=== PATIENT | male | born 1955 | race Caucasian/White ===

== ENCOUNTER 2024-08-01 14:34 | Inpatient (IN) | payer OTHER ==
[2024-08-01] MEDS ORDERED: IPRATROPIUM BROM 0.5MG/2.5ML ONE (15:09)
[2024-08-01] MEDS ORDERED: ALBUTEROL 2.5 MG/3 ML NEB SOL ONE ×2 (15:09→16:21)
[2024-08-01] MEDS ORDERED: Magnesium Sulfate 2gm IVPB 2 G/50 ML BAG IV ONE (15:10)
[2024-08-01] MEDS ORDERED: METHYLPREDNISOLONE 125 MG INJ ONE (15:10)
[2024-08-01 15:15] LABS: Absolute Basophils 0.1 K/uL (0-0.5); Absolute Eosinophils 0.2 K/uL (0-0.5); Absolute Lymphocytes (CBC) 1.7 K/uL (0.7-4.9); Absolute Monocytes 0.9 K/uL (0.1-1.3); Eosinophils % 2.4 % (0-4.4); Hematocrit 42.3 % (39.6-49.0); Hemoglobin 14.7 g/dL (13.6-17.9); Lymphocytes % 21.2 % (15.3-44.8); MCH 31.3 pg (27.0-35.0); MCHC 34.7 g/dL (32.0-36.0); MPV 8.7 fL (7.6-11.3); Monocytes % 11.3 % (3.3-12.3); Neutrophils % 64.1 % (41.7-73.7); Platelets 190 thou/uL (152-406); Red Cell Distribution Width 14.1 % (12.1-15.2)
[2024-08-01 15:34] LABS: ALT/SGPT 35 U/L (16-61); AST/SGOT 15 U/L (15-37); Albumin 3.9 g/dL (3.4-5.0); Alkaline Phosphatase 88 U/L (45-117); Anion Gap 7.2 mEq/L (5.0-15.0); BUN Blood Urea Nitrogen 24 mg/dL (7-18); Bicarbonate 27 mEq/L (21-32); Bilirubin Total 0.5 mg/dL (0.2-1.0); Globulin 4.1 g/dL (2.3-3.5); Glomerular Filtration Rate 59 ml/min (=/>90); Glucose Level 85 mg/dL (74-106); Potassium 4.2 mEq/L (3.5-5.1); Sodium Level 138 mEq/L (136-145); Troponin High Sensitivity 5.2 pg/mL (<58.9)
[2024-08-01 15:35] LABS: Bilirubin Direct < 0.2 mg/dL (0-0.2); Bilirubin Indirect, Calculated 0.3 mg/dL (0.2-0.8)
[2024-08-01 15:36] LABS: Influenza A Ag Negative; Influenza B Ag Negative; SARS-CoV-2 Antigen Rapid Res Negative (Negative)
--- NOTE | 2024-08-01 15:56 | RAD REPORT ---
Procedure: Chest Single View HISTORY: Shortness of breath COMPARISON: none FINDINGS: Right lung base is hazy Lungs are hyperaerated. No significant pleural effusion noted. The heart is mildly enlarged. Post surgical changes involve the chest IMPRESSION: Right lung base is hazy probably pneumonia COPD
--- NOTE | 2024-08-01 16:43 | EDPHYS ---
Physician Documentation [facility] Name: Adolfo Lala Age: 69 yrs Sex: Male : 1955 Arrival Date: 08/01/2024 Time: 14:34 Bed 18 Private MD: ED Physician Coral Mars HPI: 08/01 14:57 This 69 yrs old Male presents to ER via EMS with complaints of Shortness Of sw6 Breath. 14:57 The patient has shortness of breath at rest. Onset: The symptoms/episode began/occurred sw6 Several days ago. Duration: The symptoms are continuous, and are steadily getting worse. The patient has experienced similar episodes in the past. The patient presents for evaluation for worsening shortness of breath of the possible days. He also complains of a cough but no fevers. He reports he was recently incarcerated. He does have a history of COPD and is a current smoker. He does not wear oxygen at baseline. He does have an albuterol inhaler and reports he last used it around noon today. It did help him slightly when he took it. No chest pain or pressure. No ear pain. No sore throat. He reports he feels worse with minimal exertion. Here for evaluation.. Historical: - Allergies: 14:59 No Known Allergies; sw6 - Immunization history:: Adult Immunizations unknown. - Social history:: Smoking status: Patient reports the use of cigarette tobacco products, unknown amount. - Infectious Disease History:: Denies. ROS: 14:59 Constitutional: Negative for fever, chills, and weight loss, Cardiovascular: Negative sw6 for chest pain, palpitations, and edema, Abdomen/GI: Negative for abdominal pain, nausea, vomiting, diarrhea, and constipation, 14:59 Respiratory: Positive for cough, with no reported sputum, shortness of breath, at rest. 14:59 All other systems are negative, Exam: 14:59 Constitutional: This is a well developed, well nourished patient who is awake, alert, sw6 and in no acute distress. Head/Face: Normocephalic, atraumatic. Cardiovascular: Regular rate and rhythm with a normal S1 and S2. No gallops, murmurs, or rubs. Normal PMI, no JVD. No pulse deficits. Abdomen/GI: Soft, non-tender, with normal bowel sounds. No distension or tympany. No guarding or rebound. No evidence of tenderness throughout. Skin: Warm, dry with normal turgor. Normal color with no rashes, no lesions, and no evidence of cellulitis. MS/ Extremity: Pulses equal, no cyanosis. Neurovascular intact. Full, normal range of motion. Neuro: Awake and alert, GCS 15, oriented to person, place, time, and situation. Cranial nerves II-XII grossly intact. Motor strength 5/5 in all extremities. Sensory grossly intact. Cerebellar exam normal. Normal gait. 14:59 Respiratory: Poor air movement throughout bilateral lung mckeon with occasional wheezing. No use of accessory muscles and he is able to speak in full and complete sentences without difficulty., 15:26 ECG was reviewed by the Attending Physician. Vital Signs: 14:51 BP 166 / 106; Pulse 69; Resp 16; Temp 97.8; Pulse Ox 86% ; Weight 61.69 kg; Height 5 db ft. 5 in. ; 15:30 BP 163 / 83; Pulse 58; Resp 17; Pulse Ox 91% on 5 lpm NC; db 16:00 BP 173 / 83; Pulse 59; Resp 18; Pulse Ox 93% on 5 lpm NC; db 17:00 BP 173 / 90; Pulse 63; Resp 14; Pulse Ox 91% on 5 lpm NC; db 17:30 BP 134 / 69; Pulse 72; Resp 20; Pulse Ox 94% on 5 lpm NC; db 18:00 BP 166 / 84; Pulse 64; Resp 18; Pulse Ox 90% ; db 18:30 BP 175 / 83; Pulse 76; Resp 16; Pulse Ox 91% on 5 lpm NC; db 19:30 BP 138 / 66; Pulse 71; Resp 20; Pulse Ox 93% on 4 lpm NC; ay 14:51 Body Mass Index 22.63 (61.69 kg, 165.1 cm) db MDM: 14:50 Medical Screening Exam initiated 14:59 Differential diagnosis: Bronchitis Chronic Obstructive Pulmonary Disease pneumonia, sw6 reactive airway disease. Data reviewed: vital signs, nurses notes. 16:32 Antibiotic administration: Rocephin and Zithromax given. Management of patient was discussed with the following: Hospitalist: . ED course: The patient has improved aeration to bilateral lungs after the treatments given above. His laboratory studies are unremarkable. His chest x-ray is concerning for right lower lobe pneumonia. He was given antibiotics here in the ER. As he does continue to have an oxygen requirement he does require admission for continued management.. 16:43 ED course: spoke with Dr. Hansen with the internal medicine service and the patient was swAlexey accepted for admission for continued management. . 08/01 14:57 Order name: BMP; Complete Time: 15:51 [facility] 08/01 15:51 Interpretation: Within normal limits. [facility] 08/01 14:57 Order name: CBC with Diff; Complete Time: 15:51 [facility] 08/01 15:51 Interpretation: Within normal limits. [facility] 08/01 14:57 Order name: Hepatic Function; Complete Time: 15:51 [facility] 08/01 15:51 Interpretation: Within normal limits. [facility] 08/01 14:57 Order name: Troponin HS; Complete Time: 15:51 [facility] 08/01 15:51 Interpretation: Within normal limits. [facility] 08/01 14:57 Order name: COVID-19 Ag + Flu A+B Ag; Complete Time: 15:51 [facility] 08/01 15:51 Interpretation: Within normal limits. [facility] 08/01 17:48 Order name: Urinalysis w/ reflexes EDMS 08/01 17:48 Order name: Basic Metabolic Panel EDMS 08/01 17:48 Order name: Basic Metabolic Panel EDMS 08/01 17:48 Order name: Basic Metabolic Panel EDMS 08/01 17:48 Order name: Basic Metabolic Panel EDMS 08/01 17:48 Order name: CBC with Automated Diff EDMS 08/01 17:48 Order name: CBC with Automated Diff EDMS 08/01 17:48 Order name: CBC with Automated Diff EDMS 08/01 17:48 Order name: CBC with Automated Diff EDMS 08/01 17:48 Order name: Magnesium EDMS 08/01 17:48 Order name: Magnesium EDMS 08/01 17:48 Order name: Magnesium EDMS 08/01 17:48 Order name: Magnesium EDMS 08/01 17:48 Order name: Phosphorus EDMS 08/01 17:48 Order name: Phosphorus EDMS 08/01 17:48 Order name: Phosphorus EDMS 08/01 17:48 Order name: Phosphorus EDMS 08/01 17:48 Order name: Troponin High Sensitivity EDMS 08/01 17:48 Order name: Troponin High Sensitivity EDMS 08/01 17:48 Order name: Troponin High Sensitivity [facility] 08/01 14:57 Order name: XRAY CXR (1 view); Complete Time: 16:28 08/01 16:28 Interpretation: Pneumonia. 08/01 14:57 Order name: EKG; Complete Time: 14:57 08/01 17:48 Order name: CONS Physician Consult [facility] 08/01 14:57 Order name: Cardiac monitoring; Complete Time: 15:40 08/01 14:57 Order name: EKG - Nurse/Tech; Complete Time: 15:40 08/01 14:57 Order name: IV Saline Lock; Complete Time: 15:40 08/01 14:57 Order name: Labs collected and sent; Complete Time: 15:40 08/01 14:57 Order name: O2 Per Protocol; Complete Time: 15:40 08/01 14:57 Order name: O2 Sat Monitoring; Complete Time: 15:40 sw EC: Rate is 55 beats/min. Rhythm is regular. QRS [place] is Normal. DE interval is normal. QRS sw6 interval is normal. QT interval is normal. No Q waves. T waves are Normal. No ST changes noted. Administered Medications: 15:10 Drug: Albuterol Inhalation 7.5 mg Inhalation once Route: Inhalation; db 16:15 Follow up: Response: No adverse reaction db 15:10 Drug: Ipratropium Inhalation Aerosol 0.5 mg Inhalation once Route: Inhalation; db 16:15 Follow up: Response: No adverse reaction db 15:12 Drug: MethylPrednisoLONE IVP 125 mg IVP once Route: IVP; Site: right antecubital; db 16:15 Follow up: Response: No adverse reaction db 15:15 Drug: Magnesium Sulfate IVPB 2 grams IVPB once over 30 mins Route: IVPB; Infused Over: db 30 mins; Site: right antecubital; 16:15 Follow up: Response: No adverse reaction; IV Status: Completed infusion; IV Intake: 50mldb 16:25 Drug: Albuterol Inhalation 5 mg Inhalation once Route: Inhalation; db 17:09 Drug: Rocephin - Rocephin (cefTRIAXone) IVPB 1 grams IVPB once over 30 mins; (mix in 50 db mL NS) Route: IVPB; Infused Over: 30 mins; Site: right antecubital; 17:56 Follow up: Response: No adverse reaction; IV Status: Completed infusion; IV Intake: 50mldb 17:09 Drug: AZITHromycin PO 500 mg PO once Route: PO; db 17:56 Follow up: Response: No adverse reaction db Disposition Summary: 08/01/24 16:43 Hospitalization Ordered Notes: Hospitalization Status: Inpatient Admission sw6 Provider: Bernardino Hansen6 Location: Telemetry/MedSur (Inpatient) sw6 Condition: Fair sw6 Symptoms: are unchanged sw6 Bed/Room Type: Standard sw6 Problem: an acute exacerbation(08/01/24 16:43) sw6 Room Assignment: 208(08/01/24 19:34) iw Diagnosis - Other pneumonia, unspecified organism sw6 - hypoxia sw6 - COPD/ Chronic obstructive pulmonary disease with (acute) exacerbation sw6 Forms: - Medication Reconciliation Form sw6 - SBAR form sw6 - Leadership Thank You Letter 6 Signatures: Dispatcher [employer] Mable Reyes RN RN iw Kim Gil RN RN db Coral Mars MD MD sw6 Corrections: (The following items were deleted from the chart) 16:43 16:43 chronic sw6 sw6 19:34 16:43 sw6 iw
--- NOTE | 2024-08-01 16:43 | ER ---
Nurse's Notes [facility] Name: Adolfo Lala Age: 69 yrs Sex: Male : 1955 Arrival Date: 08/01/2024 Time: 14:34 Bed 18 Private MD: Diagnosis: Other pneumonia, unspecified organism;hypoxia;COPD/ Chronic obstructive pulmonary disease with (acute) exacerbation Presentation: 08/01 14:43 Chief complaint: EMS states: Pt from [facility], called EMS for difficulty breathing, ph hx of COPD, 81% RA, improved to 88% on neb mask, duo-neb x 1 given. Coronavirus screen: Vaccine status: Patient reports being unvaccinated. Ebola Screen: No symptoms or risks identified at this time. Initial Sepsis Screen: Does the patient meet any 2 criteria? No. Patient's initial sepsis screen is negative. Does the patient have a suspected source of infection? No. Patient's initial sepsis screen is negative. Risk Assessment: Do you want to hurt yourself or someone else? Patient reports no desire to harm self or others. Onset of symptoms was August 01, 2024. 14:43 Method Of Arrival: EMS: [facility] ph 14:43 Acuity: ALVAREZ 2 ph Historical: - Allergies: 14:59 No Known Allergies; sw6 - Immunization history:: Adult Immunizations unknown. - Social history:: Smoking status: Patient reports the use of cigarette tobacco products, unknown amount. - Infectious Disease History:: Denies. Screenin:[facility] ED Fall Risk Assessment (Adult) History of falling in the last 3 months, db including since admission No falls in past 3 months (0 pts) Confusion or Disorientation No (0 pts) Intoxicated or Sedated No (0 pts) Impaired Gait No (0 pts) Mobility Assist Device Used No (0 pt) Altered Elimination No (0 pt) Score/Fall Risk Level 0 - 2 = Low Risk Oriented to surroundings, Maintained a safe environment. Abuse screen: Denies threats or abuse. Denies injuries from another. Nutritional screening: No deficits noted. Tuberculosis screening: No symptoms or risk factors identified. Assessment: 15:40 Reassessment: Patient appears in no apparent distress at this time. Patient and/or db family updated on plan of care and expected duration. Pain level reassessed. Patient is alert, oriented x 3, equal unlabored respirations, skin warm/dry/pink. General: Appears in no apparent distress. comfortable, Behavior is calm, cooperative. Pain: Denies pain. Neuro: Level of Consciousness is awake, alert, obeys commands, Oriented to person, place, time, situation. Cardiovascular: Rhythm is sinus rhythm. Respiratory: Airway is patent Respiratory effort is even, unlabored, Respiratory pattern is regular, symmetrical. 15:40 Respiratory: Breath sounds with wheezes bilaterally. db 16:45 Reassessment: Patient appears in no apparent distress at this time. Patient and/or db family updated on plan of care and expected duration. Pain level reassessed. Patient is alert, oriented x 3, equal unlabored respirations, skin warm/dry/pink. Respiratory:. 17:23 Reassessment: Patient appears in no apparent distress at this time. Patient and/or db family updated on plan of care and expected duration. Pain level reassessed. Patient is alert, oriented x 3, equal unlabored respirations, skin warm/dry/pink. Patient states feeling better. 18:00 Reassessment: Patient appears in no apparent distress at this time. Patient and/or db family updated on plan of care and expected duration. Pain level reassessed. Patient is alert, oriented x 3, equal unlabored respirations, skin warm/dry/pink. 18:43 Reassessment: Patient appears in no apparent distress at this time. Patient and/or db family updated on plan of care and expected duration. Pain level reassessed. Patient is alert, oriented x 3, equal unlabored respirations, skin warm/dry/pink. PATIENT PROVIDED A SANDWICH. 19:00 General: pt alert and oriented, no distress noted. still experiencing SOB, on 4L NC. ay Denies pain. Vital Signs: 14:51 BP 166 / 106; Pulse 69; Resp 16; Temp 97.8; Pulse Ox 86% ; Weight 61.69 kg; Height 5 db ft. 5 in. ; 15:30 BP 163 / 83; Pulse 58; Resp 17; Pulse Ox 91% on 5 lpm NC; db 16:00 BP 173 / 83; Pulse 59; Resp 18; Pulse Ox 93% on 5 lpm NC; db 17:00 BP 173 / 90; Pulse 63; Resp 14; Pulse Ox 91% on 5 lpm NC; db 17:30 BP 134 / 69; Pulse 72; Resp 20; Pulse Ox 94% on 5 lpm NC; db 18:00 BP 166 / 84; Pulse 64; Resp 18; Pulse Ox 90% ; db 18:30 BP 175 / 83; Pulse 76; Resp 16; Pulse Ox 91% on 5 lpm NC; db 19:30 BP 138 / 66; Pulse 71; Resp 20; Pulse Ox 93% on 4 lpm NC; ay 14:51 Body Mass Index 22.63 (61.69 kg, 165.1 cm) db ED Course: 14:37 Patient arrived in ED. mr 14:45 Triage completed. ph 14:45 Arm band placed on Patient placed in an exam room. ph 14:48 Coral Mars MD is Attending Physician. sw6 14:51 Kim Gil, RN is Primary Nurse. db 15:05 Initial lab(s) drawn, by me, sent to lab. EKG done. Initial Neb Treatment Given as db ordered. Inserted saline lock: 20 gauge in right antecubital area, using aseptic technique. Blood collected. Flushed with 10 mL NS. 15:43 XRAY CXR (1 view) In Process Unspecified. EDMS 16:43 Bernardino Hansen is Hospitalizing Provider. sw6 17:14 Patient has correct armband on for positive identification. Bed in low position. Call db light in reach. Side rails up X 1. Client placed on continuous cardiac and pulse oximetry monitoring. NIBP monitoring applied. youth nutritional monitor on. Pulse ox on. NIBP on. Pillow given. 18:47 Response to oxygen therapy: symptoms improved. db 20:21 Kirstie Coto, RN is Primary Nurse. ay 20:24 Patient admitted, IV remains in place. ay Administered Medications: 15:10 Drug: Albuterol Inhalation 7.5 mg Inhalation once Route: Inhalation; db 16:15 Follow up: Response: No adverse reaction db 15:10 Drug: Ipratropium Inhalation Aerosol 0.5 mg Inhalation once Route: Inhalation; db 16:15 Follow up: Response: No adverse reaction db 15:12 Drug: MethylPrednisoLONE IVP 125 mg IVP once Route: IVP; Site: right antecubital; db 16:15 Follow up: Response: No adverse reaction db 15:15 Drug: Magnesium Sulfate IVPB 2 grams IVPB once over 30 mins Route: IVPB; Infused Over: db 30 mins; Site: right antecubital; 16:15 Follow up: Response: No adverse reaction; IV Status: Completed infusion; IV Intake: 50mldb 16:25 Drug: Albuterol Inhalation 5 mg Inhalation once Route: Inhalation; db 17:09 Drug: Rocephin - Rocephin (cefTRIAXone) IVPB 1 grams IVPB once over 30 mins; (mix in 50 db mL NS) Route: IVPB; Infused Over: 30 mins; Site: right antecubital; 17:56 Follow up: Response: No adverse reaction; IV Status: Completed infusion; IV Intake: 50mldb 17:09 Drug: AZITHromycin PO 500 mg PO once Route: PO; db 17:56 Follow up: Response: No adverse reaction db Intake: 16:15 IV: 50ml; Total: 50ml. db 17:56 IV: 50ml; Total: 100ml. db Output: 17:12 Urine: 725ml (Voided); Total: 725ml. db Outcome: 16:43 Decision to Hospitalize by Provider. swAlexey 20:24 Admitted to Med/surg accompanied by tech, via wheelchair, with oxygen, ay 20:24 Condition: stable 20:24 Instructed on the need for admit, 20:26 Patient left the ED. ay Signatures: Dispatcher [employer] EDNM Patty Dennis, Greg Reg mr Ariana Lemons, RN RN ph Kim Gil RN RN db Coral Mars MD MD Kirstie Monte RN RN ay Corrections: (The following items were deleted from the chart) 17:27 15:40 Reassessment: Patient appears in no apparent distress at this time. Patient db and/or family updated on plan of care and expected duration. Pain level reassessed. Patient is alert, oriented x 3, equal unlabored respirations, skin warm/dry/pink. db
[2024-08-01] MEDS ORDERED: AZITHROMYCIN 250 MG TAB ONE (16:49)
[2024-08-01] MEDS ORDERED: CEFTRIAXONE 1000 MG/VIAL ONE (16:49)
[2024-08-01] MEDS ORDERED: NA CHLORIDE 0.9% 50 ML ONE (16:49)
[2024-08-01] MEDS ORDERED: ACETAMINOPHEN 325 MG TABLET PO PRN (17:40)
--- NOTE | 2024-08-01 19:46 | P.HP ---
Patient History Date of Service: 08/01/24 Reason for admission: Acute hypoxic respiratory failure 2/2 COPD exacerbation an d pneumonia History of Present Illness: Adolfo Lala is a 69 year old male with Pmhx COPD and substance abuse who presents to the ED with with SOB for 3 days. He reports using inhalers for his COPD management but is also homeless and recently released from [facility] and now at [facility] for detox. He reports, being unable to see a doctor regularly but has not required oxygen before. Laboratory evaluation significant for BUN/creatinine 24/1.32, GFR 59. Chest xray reports "Right lung base is hazy probably pneumonia. COPD" Adolfo will be admitted to hospitalist service for further treatment of Acute hypoxic respiratory failure 2/2 COPD exacerbation and pneumonia. Dr. Anthony consulted. Allergies No Known Allergies Allergy (Unverified 08/01/24 18:05) - Past Medical/Surgical History -: COPD -: Substance abuse - Social History Smoking Status: Current every day smoker Alcohol use: No CD- Drugs: No Review of Systems Other: per HPI Physical Examination - Physical Exam General: Alert, In no apparent distress, Oriented x3 HEENT: Atraumatic, Normocephalic, PERRLA Neck: Supple, 2+ carotid pulse no bruit Respiratory: Clear to auscultation bilaterally, Normal air movement Cardiovascular: No edema, Normal pulses, Regular rate/rhythm, Normal S1 S2 Capillary refill: <2 Seconds Gastrointestinal: Normal bowel sounds, Soft and benign Musculoskeletal: No clubbing Integumentary: No rashes Neurological: Normal speech, Normal tone - Studies Laboratory Data (last 24 hrs) 08/01/24 08/01/24 15:05 15:05 WBC 7.80 Hgb 14.7 Hct 42.3 Plt Count 190 Sodium 138 Potassium 4.2 BUN 24 H Creatinine 1.32 H Glucose 85 Total Bilirubin 0.5 AST 15 ALT 35 Alkaline Phosphatase 88 Assessment and Plan - Plan Assessment and Plan Acute hypoxic respiratory failure 2/2 COPD exacerbation and pneumonia -COVID, FLU negative -Oxygen protocol -steroids IV -duo nebs -rocephin and Azithromycin -Dr. Anthony consulted -Home O2 in the AM JOSELYN -gentle IVF -monitor in AM labs Substance abuse - recent detox -supportive care DVT ppx heparin Full code LOS 2-3 days Discharge Plan: Other Plan to discharge in: 48 Hours - Advance Directives Does patient have a Living Will: No Does patient have a Durable POA for Healthcare: No
[2024-08-01] MEDS: IPRATROPIUM BROM 0.5MG/2.5ML NEB SCH (21:08)
[2024-08-01] MEDS: ALBUTEROL 2.5 MG/3 ML NEB SOL NEB SCH (21:08)
[2024-08-01 22:31] VITALS: BMI 22.6
[2024-08-01] MEDS: lisinopriL 20 MG TAB PO SCH (23:41)
[2024-08-01] MEDS: METOPROLOL XL 100 MG TAB PO SCH (23:41)
[2024-08-01] MEDS: AMLODIPINE 5 MG TAB PO SCH (23:41)
[2024-08-01] MEDS: NA CHLORIDE 0.9% 1,000 ML IV SCH (23:42)
[2024-08-02] MEDS: METHYLPREDNISOLONE 40 MG INJ IV SCH (00:46)
[2024-08-02] MEDS: HEPARIN 5000 UNIT/ML 1 ML VIAL SQ SCH (00:46)
[2024-08-02 04:51] LABS: Absolute Lymphocytes (CBC) 0.5 K/uL (0.7-4.9); Absolute Monocytes 0.1 K/uL (0.1-1.3); Absolute Neutrophil 7.4 K/uL (1.8-8.0); Basophils % 0.1 % (0-1.3); Hematocrit 39.7 % (39.6-49.0); Hemoglobin 14.1 g/dL (13.6-17.9); Lymphocytes % 6.4 % (15.3-44.8); MCH 31.6 pg (27.0-35.0); MCHC 35.5 g/dL (32.0-36.0); MCV 88.9 fL (80-100); MPV 9.5 fL (7.6-11.3); Monocytes % 1.5 % (3.3-12.3); Platelets 190 thou/uL (152-406); RBC Red Blood Cell Count 4.47 M/uL (4.33-5.43)
[2024-08-02 05:07] LABS: Anion Gap 12.1 mEq/L (5.0-15.0); Magnesium 2.2 mg/dL (1.6-2.4); Phosphorus 3.3 mg/dL (2.5-4.9); Potassium 4.1 mEq/L (3.5-5.1)
[2024-08-02 05:19] LABS: Blood Morphology Comment NOTED (NOT SEEN); Ovalocytes SLIGHT; Platelet Estimate ADEQ; Poikilocytosis SLIGHT; White Blood Cell Scan OK (OK)
[2024-08-02] MEDS: MONTELUKAST 10 MG TAB PO SCH (08:16)
[2024-08-02] MEDS: CEFTRIAXONE 1,000 MG in NA CHLORIDE 0.9% 50 ML IVPB SCH (08:16)
[2024-08-02] MEDS: AZITHROMYCIN IV 500 MG in NA CHLORIDE 0.9% 250 ML IVPB SCH (09:00)
[2024-08-02] MEDS: GUAIFENESIN 600 MG SA TAB PO SCH (09:29)
--- NOTE | 2024-08-02 09:29 | P.CNS ---
Date of Consult: 08/02/24 Reason for Consult: COPD exacerbation Chief Complaint: COPD exacerbation History of Present Illness: Patient is 69 years of age with a history of COPD heavy smoker 1 pack a day has been sick for about 3 to 4 days complaining of worsening dyspnea cough congest ion he is in a drug and rehab unit right now uses bronchodilators patient is not on any oxygen feels a little better complains of sinus congestion postnasal drainage Allergies No Known Allergies Allergy (Verified 08/01/24 21:48) Home Medications: Albuterol Inhaler [Ventolin Inhaler*] 6.7 gm IH DIRECTED 08/01/24 Amlodipine [Norvasc*] 5 mg PO DAILY 08/01/24 Metoprolol Succinate 100 mg PO BID 08/01/24 Montelukast [Singulair*] 10 mg PO DAILY 08/01/24 Pravastatin Sodium 40 mg PO DAILY AFTER SUPPER 08/01/24 Trazodone HCl 100 mg PO BEDTIME 08/01/24 lisinopriL [Lisinopril] 40 mg PO DAILY 08/01/24 - Past Medical/Surgical History Diabetic: No -: COPD -: Substance abuse -: cardiac bypass - Social History Smoking Status: Current every day smoker Alcohol use: No CD- Drugs: No Caffeine use: No Place of Residence: [facility] Review of Systems 10-point ROS is otherwise unremarkable General: Weakness Respiratory: Cough, Shortness of Breath Physical Examination Temp Pulse Resp BP Pulse Ox 98.1 F 78 16 152/76 H 91 08/02/24 08:00 08/02/24 08:15 08/02/24 08:00 08/02/24 08:15 08/02/24 08:00 General: Alert, Oriented x3 Respiratory: Expiratory wheezes Cardiovascular: No edema, Regular rate/rhythm, Normal S1 S2 Gastrointestinal: Normal bowel sounds, Non-distended Laboratory Data (last 24 hrs) 08/01/24 08/01/24 15:05 15:05 WBC 7.80 Hgb 14.7 Hct 42.3 Plt Count 190 Sodium 138 Potassium 4.2 BUN 24 H Creatinine 1.32 H Glucose 85 Total Bilirubin 0.5 AST 15 ALT 35 Alkaline Phosphatase 88 - Problems (1) COPD exacerbation Current Visit: Yes Status: Acute Plan: Patient is 69 years of age admitted with COPD exacerbation heavy smoker chest x- ray shows prominent cardiomegaly may have underlying heart disease he has had a history of coronary artery bypass grafting history of drug and alcohol abuse he is on rehab place right now changed to p.o. prednisone continue with inhaled bronchodilators I have ordered an echocardiogram patient complains of sinus drainage agree with Alan also gave him some Lasix patient has renal insufficiency order ultrasound of the kidneys urinalysis possible discharge a.m.
[2024-08-02] MEDS: FUROSEMIDE 20 MG TABLET PO SCH (09:56)
[2024-08-02] MEDS: DULERA 200/5 (MOMETASONE/FORMOTEROL) INHALER IH SCH (10:55)
--- NOTE | 2024-08-02 11:11 | RAD REPORT ---
EXAMINATION: US RETROPERITONEUM CLINICAL INDICATION: Renal failure TECHNIQUE: Real-time ultrasonography of the abdomen was performed. COMPARISON: No prior exam. FINDINGS: RIGHT KIDNEY: Right renal length measurement: 8.4 cm. Normal in echogenicity and size. No calculus, s olid mass or hydronephrosis. Anechoic renal cyst along the lateral kidney measuring 1.7 cm. LEFT KIDNEY: Left renal length measurement: 8.9 cm. Normal in echogenicity and size. No calculus, balwinder id mass or hydronephrosis. Left renal cyst at the upper pole measuring 1.8 cm. ADDITIONAL FINDINGS: N/A IMPRESSION: Benign bilateral renal cysts. No evidence of hydronephrosis.
[2024-08-02] MEDS: HYDRALAZINE HCL 20 MG/ML VIAL IV PRN (12:30)
[2024-08-02 13:11] LABS: Specific Gravity 1.013 (1.005-1.030); Urine Bilirubin NEGATIVE (Negative); Urine Blood Negative (Negative); Urine Clarity Clear (Clear); Urine Color Colorless (Yellow); Urine Glucose NEGATIVE (Negative); Urine Ketones NEGATIVE (Negative); Urine Microscopic Reflex YN NO UMIC; Urine Nitrite NEGATIVE (Negative); Urine Protein NEGATIVE (Negative); Urine Urobilinogen Normal (Normal)
[2024-08-02] MEDS: FLU (Fluarix Triv) TS24-25(6MOS UP)/PF 45 MCG/0.5 ML Syringe IM ONE (13:55)
[2024-08-02] MEDS: PNEUMOCOCCAL VACCINE 0.5 ML IMVAC ONE (13:56)
[2024-08-02] MEDS: FLUTICASONE 50MCG NASAL SPRAY NAS PRN (16:57)
[2024-08-02] MEDS: ATORVASTATIN 10 MG TAB PO SCH (16:58)
[2024-08-02] MEDS: GUAIFENESIN/DM 5 ML UCUP PO PRN (17:11)
--- NOTE | 2024-08-02 17:12 | P.PN ---
Date of Service: 08/02/24 Subjective Awake, on 4 LNC no new complains ROS 10 point ROS as noted above, otherwise negative Physical Exam General: Alert and Oriented x3, NAD HEENT: Atraumatic, Normocephalic, PERRLA Neck: Supple, 2+ carotid pulse no bruit Respiratory: Clear to auscultation bilaterally, Normal air movement, on 4-5 LNC Cardiovascular: No edema, Normal pulses, RRR, Normal S1 S2 Capillary refill: <2 Seconds Gastrointestinal: Normal bowel sounds, Soft on palpation Musculoskeletal: No clubbing Integumentary: No rashes Neurological: Normal speech, Normal tone Vitals Reviewed Problem list Acute hypoxic respiratory failure 2/2 COPD exacerbation and pneumonia JOSELYN Substance abuse Assessment and Plan Acute hypoxic respiratory failure 2/2 COPD exacerbation and pneumonia -COVID, FLU negative -Oxygen protocol -Prednisone p.o. -duo nebs -rocephin and Azithromycin stopped 08/02 -Dr. Anthony consulted -Echocardiogram ordered -Lasix IV JOSELYN -gentle IVF -monitor in AM labs -Renal ultrasound revealing "Benign bilateral renal cysts." Substance abuse -recent detox -supportive care Hospital interval course 08/02/24 -Prednisone PO -antibiotics stopped -ECHO ordered -Continues on NC, likely will need home O2 -Left shift neutrophils 92.0 DVT ppx heparin Full code LOS 2-3 days Discharge Plan: Other Plan to discharge in: 48 Hours
[2024-08-02] MEDS: AMOX/K CLAV 500 MG TAB PO SCH (20:13)
[2024-08-02] MEDS: TRAZODONE 50 MG TABLET PO SCH (20:14)
[2024-08-02] MEDS: predniSONE 20 MG TAB PO SCH (20:14)
[2024-08-03 06:20] LABS: Absolute Lymphocytes (CBC) 0.8 K/uL (0.7-4.9); Absolute Monocytes 1.3 K/uL (0.1-1.3); Absolute Neutrophil 13.6 K/uL (1.8-8.0); Basophils % 0.3 % (0-1.3); Hematocrit 37.6 % (39.6-49.0); Hemoglobin 13.1 g/dL (13.6-17.9); Lymphocytes % 5.1 % (15.3-44.8); MCH 31.1 pg (27.0-35.0); MCHC 34.9 g/dL (32.0-36.0); MCV 89.2 fL (80-100); MPV 9.6 fL (7.6-11.3); Monocytes % 8.3 % (3.3-12.3); Neutrophils % 86.3 % (41.7-73.7); Platelets 201 thou/uL (152-406); RBC Red Blood Cell Count 4.22 M/uL (4.33-5.43); Red Cell Distribution Width 14.1 % (12.1-15.2)
[2024-08-03 06:34] LABS: Anion Gap 9.4 mEq/L (5.0-15.0); Magnesium 2.4 mg/dL (1.6-2.4); Potassium 4.4 mEq/L (3.5-5.1)
--- NOTE | 2024-08-03 15:25 | P.PN ---
Subjective Date of Service: 08/03/24 Chief Complaint: COPD exacerbation Patient reports intermittent cough. He is maintained on 5 to 6 L of oxygen by nasal cannula. No recorded fever. He denies any chest pain. Physical Examination - Vital Signs Temperature: 97.8 F Blood Pressure: 169/77 Pulse: 70 Respirations: 16 Pulse Ox (%): 90 Assessment And Plan - Plan Physical examination General: Alert and oriented x3, NAD, HEENT: Conjunctiva not pale, anicteric sclera. Oxygen by nasal cannula Neck: Supple, no elevated JVD Heart: Heart sounds 1 and 2 normal, regular rhythm, normal rate, no pedal edema Lungs: Clear to auscultation bilaterally, adequate breath sounds bilaterally, no rhonchi or crackles. Abdomen: Soft, nondistended, nontender, normal bowel sounds. Extremities: No tenderness, no deformity Skin: Normal skin turgor, no rash, no nodules or ulcers. Neuro: No focal motor deficit. Normal speech. Psychiatry: Normal mood, no agitation. Assessment and plan Acute hypoxic respiratory failure 2/2 COPD exacerbation and pneumonia -COVID, FLU negative -Oxygen protocol -Prednisone p.o. -duo nebs -rocephin and Azithromycin stopped 08/02 -Dr. Anthony consulted -Echocardiogram ordered -Lasix IV JOSELYN -monitor in AM labs -Renal ultrasound revealing "Benign bilateral renal cysts." Substance abuse -recent detox -supportive care Hospital interval course 08/02/24 -Prednisone PO -antibiotics stopped -ECHO ordered -Continues on NC, likely will need home O2 -Left shift neutrophils 92.0 08/03 Patient is requiring significant amount of oxygen. Obtain CT chest. Cannot do CT angiogram due to impaired renal function. Pulmonology Dr. Anthony input appreciated. IV antibiotics changed to oral Augmentin per pulmonary. Continue steroid, scheduled nebs. Echocardiogram is pending Patient is on IV Lasix for pulmonary. Wean oxygen as tolerated. DVT prophylaxis: Heparin SQ Advanced directive: Full code
[2024-08-03] MEDS: INSULIN REGULAR (HUMAN) 100 UNIT/ML SQ SCH (16:30)
--- NOTE | 2024-08-03 18:16 | RAD REPORT ---
EXAM:[facility] CLINICAL INDICATION: Hypoxia TECHNIQUE: CT chest performed.. Axial, sagittal and coronal reconstructions were obtained. One or mor e of the following dose reduction techniques were used: Automated exposure control, adjustment of the mA and/or kV according to the patient size, and/or iterative reconstruction. Unless otherwise specified, incidental findings do not require dedicated imaging follow-up. [id number]. COMPARISON: August 01, 2024 FINDINGS: Evaluation of the mediastinum, alyssa and vessels are limited secondary to lack of IV contrast administ ration. Soft tissue right lower lobe bronchus. Right lower lobe opacity approximately 5 cm. Additional surrou nding ill-defined opacities.. Right lung volume loss. COPD There may be right hilar lymphadenopathy. No mediastinal lymphadenopathy noted. No pleural effusion. No pericardial effusion IMPRESSION: Soft tissue right lower lobe bronchus. Right lower lobe opacities may represent postobstructive atele ctasis/pneumonitis or mass. Bronchoscopy is recommended.
[2024-08-04 06:43] LABS: Absolute Lymphocytes (CBC) 0.8 K/uL (0.7-4.9); Absolute Monocytes 0.6 K/uL (0.1-1.3); Absolute Neutrophil 9.9 K/uL (1.8-8.0); Basophils % 0.1 % (0-1.3); Hematocrit 40.2 % (39.6-49.0); Hemoglobin 13.7 g/dL (13.6-17.9); Lymphocytes % 7.3 % (15.3-44.8); MCH 30.7 pg (27.0-35.0); MCHC 34.2 g/dL (32.0-36.0); MCV 89.8 fL (80-100); MPV 9.1 fL (7.6-11.3); Monocytes % 5.1 % (3.3-12.3); Neutrophils % 87.5 % (41.7-73.7); Platelets 196 thou/uL (152-406); RBC Red Blood Cell Count 4.47 M/uL (4.33-5.43); Red Cell Distribution Width 14.2 % (12.1-15.2)
[2024-08-04 06:57] LABS: Anion Gap 10.4 mEq/L (5.0-15.0); Magnesium 2.5 mg/dL (1.6-2.4); Phosphorus 3.9 mg/dL (2.5-4.9); Potassium 4.4 mEq/L (3.5-5.1)
[2024-08-04] MEDS ORDERED: LORATADINE 10 MG TAB PO PRN (09:45)
[2024-08-04] MEDS: LORATADINE 10 MG TAB PO SCH (09:58)
[2024-08-04] MEDS: SOD CHLORIDE 0.65% NASAL SPRAY NAS SCH (09:58)
--- NOTE | 2024-08-04 15:00 | P.PN ---
Subjective Date of Service: 08/04/24 Chief Complaint: COPD exacerbation Patient reports intermittent cough. Cough is nonproductive. He is maintained on 5 to 6 L of oxygen by nasal cannula. He reports nasal stuffiness and postnasal drip. No recorded fever. Physical Examination - Vital Signs Temperature: 98.9 F Blood Pressure: 151/72 Pulse: 67 Respirations: 16 Pulse Ox (%): 92 Assessment And Plan - Plan Physical examination General: Alert and oriented x3, NAD, HEENT: Conjunctiva not pale, anicteric sclera. Oxygen by nasal cannula Neck: No elevated JVD Heart: Heart sounds 1 and 2 normal, regular rhythm, normal rate, no pedal edema Lungs: Clear to auscultation bilaterally, adequate breath sounds bilaterally, mild scattered rhonchi. Abdomen: Soft, nondistended, nontender, normal bowel sounds. Extremities: No tenderness, no deformity Skin: Normal skin turgor, no rash, no nodules or ulcers. Neuro: No focal motor deficit. Normal speech. Psychiatry: Normal mood, no agitation. Assessment and plan Acute hypoxic respiratory failure 2/2 COPD exacerbation and pneumonia -COVID, FLU negative -Oxygen protocol -Prednisone p.o. -duo nebs -rocephin and Azithromycin stopped 08/02 -Dr. Anthony consulted -Echocardiogram ordered -Lasix IV JOSELYN -monitor in AM labs -Renal ultrasound revealing "Benign bilateral renal cysts." Substance abuse -recent detox -supportive care Hospital interval course 08/02/24 -Prednisone PO -antibiotics stopped -ECHO ordered -Continues on NC, likely will need home O2 -Left shift neutrophils 92.0 08/03 Patient is requiring significant amount of oxygen. Obtain CT chest. Cannot do CT angiogram due to impaired renal function. Pulmonology Dr. Anthony input appreciated. IV antibiotics changed to oral Augmentin per pulmonary. Continue steroid, scheduled nebs. Echocardiogram is pending Patient is on IV Lasix for pulmonary. Wean oxygen as tolerated. 08/04 Right lower bronchus mass/obstruction Right lower lobe atelectasis Emphysema Oxygen requirement has not changed compared to yesterday Nasal stuffiness contributing to patient's oxygen requirement. Start Claritin, nasal saline spray. Continue Flonase Continue scheduled nebs Steroids. IV Lasix transition to oral Lasix Pulmonary to follow regarding right lower lobe bronchus mass with possible atelectasis. Wean oxygen as tolerated. DVT prophylaxis: Heparin SQ Advanced directive: Full code
--- NOTE | 2024-08-05 09:02 | ECHO ---
HEIGHT: 5 ft 5 in WEIGHT: 136 lb 0.051 oz DATE OF STUDY: 08/02/[address]: Joaquin Anthony MD 2-DIMENSIONAL: YES M.MODE: YES DOPPLER: YES COLOR FLOW: YES TDS: PORTABLE: YES DEFINITY: BUBBLE STUDY: DIAGNOSIS: POSSIBLE CONGESTIVE HEART FAILURE CARDIAC HISTORY: CATHERIZATION: SURGERY: PROSTHETIC VALVE: PACEMAKER: MEASUREMENTS (cm) DIASTOLIC (NORMALS) SYSTOLIC (NORMALS) IVSd 0.9 (0.6-1.2) LA Diam 4.3 (1.9-4.0) LVEF 77% LVIDd 5.1 (3.5-5.7) LVIDs 2.8 (2.0-3.5) %FS 46% LVPWd 1.0 (0.6-1.2) Ao Diam 3.3 (2.0-3.7) 2 DIMENSIONAL ASSESSMENT: RIGHT ATRIUM: NORMAL LEFT ATRIUM: ENLARGED RIGHT VENTRICLE: NORMAL LEFT VENTRICLE: NORMAL TRICUSPID VALVE: TRACE TRICUSPID REGURGITATION MITRAL VALVE: MILD MITRAL REGURGITATION PULMONIC VALVE: MILD PULMONIC INSUFFICIENCY AORTIC VALVE: NORMAL PERICARDIAL EFFUSION: NONE AORTIC ROOT: NORMAL LEFT VENTRICULAR WALL MOTION: NORMAL DOPPLER/COLOR FLOW: SEE BELOW COMMENTS: 1. NORMAL LEFT VENTRICULAR EJECTION FRACTION GREATER THAN 60% 2. NORMAL WALL MOTION 3. GRADE I DIASTOLIC DYSFUNCTION 4. MILD LEFT ATRIAL ENLARGEMENT 5. MILD MITRAL REGURGITATION, TRICUSPID REGURGITATION, PULMONIC INSUFFICIENCY 6. QUESTIONABLE LEFT VENERICULAR APICAL PSEUDO ANEURYSM. RECOMMEND TRANSESOPHAGEAL ECHOCARDIOGRAM. TECHNOLOGIST: PAMELA BOYD
--- NOTE | 2024-08-05 12:13 | EKG ---
Test Date: 2024-08-01 Test Time: 15:21:56 Keypuncher: NGUYEN MEASUREMENT RESULTS: Intervals: Rate: 55 OH: 192 QRSD: 94 QT: 432 QTc: 413 [place]: P: 67 OH: 192 QRS: 80 T: 90 INTERPRETIVE STATEMENTS: Sinus bradycardia with sinus arrhythmia Otherwise normal ECG No previous ECG available for comparison Electronically Signed On 08-05-24 12:03:56 CDT by Jose Griffin
--- NOTE | 2024-08-05 12:39 | P.PN ---
Subjective Date of Service: 08/05/24 Chief Complaint: COPD exacerbation right lower lobe atelectasis/pneumonia Subjective: Improving (Patient is improving he is doing well he is hard of hearing is any chest pain cough or phlegm) Review of Systems General: Weakness Respiratory: Shortness of Breath Physical Examination - Vital Signs Temperature: 97.7 F Blood Pressure: 151/77 Pulse: 72 Respirations: 20 Pulse Ox (%): 90 - Physical Exam General: Alert, Oriented x3 Respiratory: Clear to auscultation bilaterally, Diminished Cardiovascular: No edema, Regular rate/rhythm Assessment And Plan - Current Problems (Diagnosis) (1) COPD exacerbation Current Visit: Yes Status: Acute Plan: Patient admitted with COPD exacerbation doing well with p.o. prednisone and an inhaler he is going to qualify for home O2 discharge home on prednisone 10 mg twice a day patient to a long-acting bronchodilator (2) Abnormal chest x-ray Current Visit: Yes Status: Acute Plan: Patient has right lower lobe atelectasis/infiltrate may be all pneumonia his white count is declining plan to continue with antibiotics Augmentin 3 times a day at home for at least another 10 days follow-up with me in 2 weeks to see if this improves otherwise he may need a bronchoscopy
--- NOTE | 2024-08-05 16:20 | P.PN ---
Subjective Date of Service: 08/05/24 Chief Complaint: COPD exacerbation right lower lobe atelectasis/pneumonia Patient some improvement in his shortness of breath. Oxygen weaned down to 3 L No recorded fever. Physical Examination - Vital Signs Temperature: 98.9 F Blood Pressure: 146/66 Pulse: 73 Respirations: 20 Pulse Ox (%): 93 Assessment And Plan - Plan Physical examination General: Alert and oriented x3, NAD, HEENT: Oxygen by nasal cannula Neck: No elevated JVD Heart: Heart sounds 1 and 2 normal, regular rhythm, normal rate, no pedal edema Lungs: Clear to auscultation bilaterally, adequate breath sounds bilaterally, mild scattered rhonchi. Abdomen: Soft, nondistended, nontender, normal bowel sounds. Extremities: No tenderness, no deformity Skin: Normal skin turgor, no rash, no nodules or ulcers. Neuro: No focal motor deficit. Normal speech. Psychiatry: Normal mood, no agitation. Assessment and plan Acute hypoxic respiratory failure 2/2 COPD exacerbation and pneumonia -COVID, FLU negative -Oxygen protocol -Prednisone p.o. -duo nebs -rocephin and Azithromycin stopped 08/02 -Dr. Anthony consulted -Echocardiogram ordered -Lasix IV JOSELYN -monitor in AM labs -Renal ultrasound revealing "Benign bilateral renal cysts." Substance abuse -recent detox -supportive care Hospital interval course 08/02/24 -Prednisone PO -antibiotics stopped -ECHO ordered -Continues on NC, likely will need home O2 -Left shift neutrophils 92.0 08/03 Patient is requiring significant amount of oxygen. Obtain CT chest. Cannot do CT angiogram due to impaired renal function. Pulmonology Dr. Anthony input appreciated. IV antibiotics changed to oral Augmentin per pulmonary. Continue steroid, scheduled nebs. Echocardiogram is pending Patient is on IV Lasix for pulmonary. Wean oxygen as tolerated. 08/04 Right lower bronchus mass/obstruction Right lower lobe atelectasis Emphysema Oxygen requirement has not changed compared to yesterday Nasal stuffiness contributing to patient's oxygen requirement. Start Claritin, nasal saline spray. Continue Flonase Continue scheduled nebs Steroids. IV Lasix transition to oral Lasix Pulmonary to follow regarding right lower lobe bronchus mass with possible atelectasis. Wean oxygen as tolerated. 08/[address] Anthony input appreciated. Dr. Anthony recommended treating patient COPD exacerbation and antibiotics- Augmentin for possible infective bronchitis. He plans to follow-up with the patient within a couple of weeks to assess for need for bronchoscopy. Continue antiallergic medications for nasal stuffiness Scheduled bronchodilators IV Lasix transitioned to oral Lasix P.o. steroids. Continue to wean oxygen. DVT prophylaxis: Heparin SQ Advanced directive: Full code
[2024-08-06 05:40] LABS: Absolute Lymphocytes (CBC) 0.7 K/uL (0.7-4.9); Absolute Monocytes 0.6 K/uL (0.1-1.3); Absolute Neutrophil 7.1 K/uL (1.8-8.0); Basophils % 0.3 % (0-1.3); Hematocrit 40.4 % (39.6-49.0); Lymphocytes % 8.4 % (15.3-44.8); MCH 31.4 pg (27.0-35.0); MCHC 34.6 g/dL (32.0-36.0); MCV 90.9 fL (80-100); MPV 8.8 fL (7.6-11.3); Monocytes % 7.3 % (3.3-12.3); Nucleated Red Blood Cells % 0.1 % (0-0); Platelets 206 thou/uL (152-406); RBC Red Blood Cell Count 4.45 M/uL (4.33-5.43)
[2024-08-06 06:01] LABS: Anion Gap 9.5 mEq/L (5.0-15.0); Potassium 4.5 mEq/L (3.5-5.1)
[2024-08-06] MEDS: AMOX/K CLAV 875 MG TAB PO SCH (09:32)
[2024-08-06] MEDS: predniSONE 10 MG TAB PO SCH (09:33)
--- NOTE | 2024-08-06 21:04 | P.PN ---
Date of Service: 08/06/24 Subjective: feeling better no new/worsening symptoms still requiring O2 Physical examination General: Alert and oriented x3, NAD CV: Regular rate/rhythm, no edema Pulm: mild scattered rhonchi, nonlabored on 3L NC . Neuro: No focal motor deficit. Normal speech. Problem List Acute hypoxic respiratory failure 2/2 COPD exacerbation and pneumonia Right lower bronchus mass/obstruction Right lower lobe atelectasis Emphysema JOSELYN Substance abuse Acute hypoxic respiratory failure 2/2 COPD exacerbation and pneumonia Right lower bronchus mass/obstruction Right lower lobe atelectasis Emphysema COVID, FLU negative Oxygen protocol Prednisone p.o. Duo nebs Dr. Anthony consulted Echocardiogram - possible LV pseudoaneurysm, can f/u with cardiology outpatient 08/03 requiring >4L NC CTA prohibitive due to renal fxn PO augmentin per Pulm IV lasix per pulm 08/04 O2 requirement same continue flonase, sterois IV to PO lasix Pulmonary to follow regarding right lower lobe bronchus mass with possible atelectasis. 08/05 continue copd treatment, and augmentin for possible infective bronchitis Dr. Anthony plans to follow-up with the patient within a couple of weeks to assess for need for bronchoscopy. 08/06 continues to improve, feeling better no new/worsening pending O2 set up. pt reports plans to go back to [facility] on dc JOSELYN, resolved -monitor in labs -Renal ultrasound revealing "Benign bilateral renal cysts." Substance abuse -recent detox -supportive care VTE: Heparin SQ Advanced directive: Full code Dispo: back to [facility], pending home O2 set up
[2024-08-07 09:25] LABS: Anion Gap 9.1 mEq/L (5.0-15.0); Magnesium 2.4 mg/dL (1.6-2.4); Potassium 4.1 mEq/L (3.5-5.1)
--- NOTE | 2024-08-07 11:55 | P.DS ---
Admission Date: 08/02/24 Discharge Date: 08/08/24 Disposition: ROUTINE DISCHARGE Discharge Condition: GOOD Reason for Admission: COPD exacerbation right lower lobe atelectasis/pneumonia Consultations: Pulmonology - Dr. Anthony Brief History of Present Illness: 69 yo M, PMH: COPD and substance abuse Patient presents to the ED with with SOB for 3 days. He reports using inhalers for his COPD management but is also homeless and recently released from senior living and now at [facility] for detox. He reports, being unable to see a doctor regularly but has not required oxygen before. Laboratory evaluation significant for BUN/creatinine 07/06.32, GFR 59. Chest xray reports "Right lung base is hazy probably pneumonia. COPD" Adolfo will be admitted to hospitalist service for further treatment of Acute hypoxic respiratory failure 2/2 COPD exacerbation and pneumonia. Dr. Anthony consulted. Hospital Course: Problem List Acute hypoxic respiratory failure 2/2 COPD exacerbation and pneumonia Right lower bronchus mass/obstruction Right lower lobe atelectasis Emphysema JOSELYN Substance abuse Physician discharge instructions: Patient presented with worsening shortness of breath, wheeze secondary to acute on chronic COPD exacerbation possibly further complicated by pneumonia/bronchitis. CT chest noted soft tissue right lower lobe bronchus and right lower lobe opacities may represent postobstructive atelectasis/pneumonitis or mass. Unable to get CTA to further evaluate given renal function. Patient was treated with IV steroids and nebulizer treatments and had improvement of his symptoms. Dr. Anthony, pulm, was consulted and recommended adding Augmentin to cover suspected infective bronchitis. Advised patient to follow up with a insurance biller within the next few weeks to re-asses need for possible bronchoscopy given soft tissue mass seen on CT chest, however felt more likely to be infectious at this time. Patient clinically improved however was still requiring oxygen supplementation. Room O2 sats were checked and patient qualified for home oxygen. Home oxygen was delivered to patient prior to discharge on 08/07. Patient was feeling better, breathing more comfortably, afebrile > 24 hours, and was deemed stable for discharge. Echocardiogram done 08/05 noted normal EF and wall motion, grade 1 diastolic dysfunction, mild left atrial enlargement, mild MR/TR/PI. Report did note a possible pseudo-aneurysn of left ventricle. I discussed with Cardiology who stated no further workup needed at this time. Follow up with Cardiology in near future Renal function remained stable between 1.3-1.4 throughout hospitalization. Renal ultrasound noted benign bilateral renal cysts otherwise negative. Medications: Prednisone 10 mg twice daily Augmentin x10 days Will send hand written prescriptions due to being unable to send prescriptions to [place] to which patient was agreeable to. Follow up: PCP 3-5 days Pulmonology in 2 weeks Cardiology in a few weeks Please call to schedule / confirm appointments Physical Exam: GEN: Alert, oriented, NAD CV: Regular rate and rhythm, no edema Pulm: Nonlabored respirations on room air, clear bilaterally ABD: soft, nontender, nondistended Integumentary: No rashes Neuro: Normal speech, normal affect Vital Signs/Physical Exam: Temp Pulse Resp BP Pulse Ox 97.7 F 63 16 187/85 H 95 08/07/24 08:00 08/07/24 08:00 08/07/24 08:00 08/07/24 08:00 08/07/24 08:00 Laboratory Data at Discharge: WBC 8.50 thou/uL (4.3-10.9) 08/06/24 05:22 Hgb 14.0 g/dL (13.6-17.9) 08/06/24 05:22 Hct 40.4 % (39.6-49.0) 08/06/24 05:22 Plt Count 206 thou/uL (152-406) 08/06/24 05:22 Sodium 138 mEq/L (136-145) 08/07/24 09:03 Potassium 4.1 mEq/L (3.5-5.1) 08/07/24 09:03 BUN 50 mg/dL (7-18) H 08/07/24 09:03 Creatinine 1.48 mg/dL (0.70-1.30) H 08/07/24 09:03 Glucose 99 mg/dL (74-106) 08/07/24 09:03 Phosphorus 3.9 mg/dL (2.5-4.9) 08/04/24 06:19 Magnesium 2.4 mg/dL (1.6-2.4) 08/07/24 09:03 Total Bilirubin 0.5 mg/dL (0.2-1.0) 08/01/24 15:05 AST 15 U/L (15-37) 08/01/24 15:05 ALT 35 U/L (16-61) 08/01/24 15:05 Alkaline Phosphatase 88 U/L (45-117) 08/01/24 15:05 Home Medications: Albuterol Inhaler [Ventolin Inhaler*] 6.7 gm IH DIRECTED 08/01/24 Amlodipine [Norvasc*] 5 mg PO DAILY 08/01/24 Metoprolol Succinate 100 mg PO BID 08/01/24 Montelukast [Singulair*] 10 mg PO DAILY 08/01/24 Pravastatin Sodium 40 mg PO DAILY AFTER SUPPER 08/01/24 Trazodone HCl 100 mg PO BEDTIME 08/01/24 lisinopriL [Lisinopril] 40 mg PO DAILY 08/01/24 Amox/Clavulanate [Augmentin 875-125 Tab*] 875 mg PO BID 10 Days #20 tab 08/07/24 predniSONE [Deltasone*] 10 mg PO BID 10 Days #20 tab 08/07/24 New Medications: Amox/Clavulanate [Augmentin 875-125 Tab*] 875 mg PO BID 10 Days #20 tab predniSONE [Deltasone*] 10 mg PO BID 10 Days #20 tab Physician Discharge Instructions: Physician discharge instructions: Patient presented with worsening shortness of breath, wheeze secondary to acute on chronic COPD exacerbation possibly further complicated by pneumonia/bronchitis. CT chest noted soft tissue right lower lobe bronchus and right lower lobe opacities may represent postobstructive atelectasis/pneumonitis or mass. Unable to get CTA to further evaluate given renal function. Patient was treated with IV steroids and nebulizer treatments and had improvement of his symptoms. Dr. Anthony, pulm, was consulted and recommended adding Augmentin to cover suspected infective bronchitis. Advised patient to follow up with a insurance biller within the next few weeks to re-asses need for possible bronchoscopy given soft tissue mass seen on CT chest, however felt more likely to be infectious at this time. Patient clinically improved however was still requiring oxygen supplementation. Room O2 sats were checked and patient qualified for home oxygen - to be delivered upon discharge. Patient was feeling better, breathing more comfortably, afebrile > 24 hours, and was deemed stable for discharge. Echocardiogram done 08/05 noted normal EF and wall motion, grade 1 diastolic dysfunction, mild left atrial enlargement, mild MR/TR/PI. Report did note a possible pseudo-aneurysn of left ventricle. I discussed with Cardiology who stated no further workup needed at this time. Follow up with Cardiology in near future Renal function remained stable between 1.3-1.4 throughout hospitalization. Renal ultrasound noted benign bilateral renal cysts otherwise negative. Medications: Prednisone 10 mg twice daily Augmentin x10 days Will send hand written prescriptions due to being unable to send prescriptions to [place] to which patient was agreeable to. Follow up: PCP 3-5 days Pulmonology in 2 weeks Cardiology in a few weeks Please call to schedule / confirm appointments Followup: NONE,NONE [Primary Care Provider] - Time spent managing pt's care (in minutes): 45
--- NOTE | 2024-08-07 21:10 | P.PN ---
Date of Service: 08/07/24 Subjective: feeling better no new/worsening symptoms still requiring O2, but improving Physical examination General: Alert and oriented x3, NAD CV: Regular rate/rhythm, no edema Pulm: clear, nonlabored on 2L NC . Neuro: No focal motor deficit. Normal speech. Problem List Acute hypoxic respiratory failure 2/2 COPD exacerbation and pneumonia Right lower bronchus mass/obstruction Right lower lobe atelectasis Emphysema JOSELYN Substance abuse Acute hypoxic respiratory failure 2/2 COPD exacerbation and pneumonia Right lower bronchus mass/obstruction Right lower lobe atelectasis Emphysema COVID, FLU negative Oxygen protocol Prednisone p.o. Duo nebs Dr. Anthony consulted Echocardiogram - possible LV pseudoaneurysm, can f/u with cardiology outpatient 08/03 requiring >4L NC CTA prohibitive due to renal fxn PO augmentin per Pulm IV lasix per pulm 08/04 O2 requirement same continue flonase, sterois IV to PO lasix Pulmonary to follow regarding right lower lobe bronchus mass with possible atelectasis. 08/05 continue copd treatment, and augmentin for possible infective bronchitis Dr. Anthony plans to follow-up with the patient within a couple of weeks to assess for need for bronchoscopy. 08/06 continues to improve, feeling better no new/worsening pending O2 set up. pt reports plans to go back to [facility] on dc 08/07 continues to improve pendign O2 set up still, expected today CM stating [facility] not wanting to take patient back - reportedly dc'd patient for being in hospital for 3 days, working on disp JOSELYN, resolved -monitor in labs -Renal ultrasound revealing "Benign bilateral renal cysts." Substance abuse -recent detox -supportive care VTE: Heparin SQ Advanced directive: Full code Dispo: SW/CM working on
[2024-08-08 08:42] VITALS: O2SAT 95
[2024-08-08 12:29] VITALS: BP 145/84; TEMP 98.8
== END 2024-08-08 14:14 | disposition home or self-care (01) | DRG 193 ==
LOC: ER 14:34 → ERHOLD 17:40 → 2ND 19:28 → OBSVTOIN 08-02 15:48
PROVIDERS: ADMIT Internal Medicine; ATTEND Hospitalist
DX: J18.9 Pneumonia, unspecified organism (principal); J96.01 Acute respiratory failure with hypoxia; J44.0 Chronic obstructive pulmonary disease with (acute) lower respiratory infection; J44.1 Chronic obstructive pulmonary disease with (acute) exacerbation; Z59.00 Homelessness unspecified; N17.9 Acute kidney failure, unspecified; J43.9 Emphysema, unspecified; N28.1 Cyst of kidney, acquired; J98.09 Other diseases of bronchus, not elsewhere classified; F17.210 Nicotine dependence, cigarettes, uncomplicated; Z23 Encounter for immunization; Z11.52 Encounter for screening for COVID-19; Z79.899 Other long term (current) drug therapy
CPT/HCPCS: 36415; 71045; 71250; 76770; 80048; 80076; 81003; 82947; 83735; 84100; 84484; 85025; 87428; 90471; 90656; 90732; 93005; 93306; 94640; 96365; 96367; 96375; 99285; G0378; J0360; J0696; J1644; J2919; J3475; J3535; J7030; J7512; J7613; J7644